=== PATIENT | female | born 1955 | race Caucasian/White ===

== ENCOUNTER 2024-02-29 13:58 | Outpatient (REF) | payer MEDICARE, SELFPAY ==
[2024-02-29 15:33] LABS: HCT 44.7 % (36.0-46.0); HGB 14.7 g/dL (11.2-15.7); MCH 30.8 pg (27.0-33.0); MCHC 32.9 % (32.0-36.0); MCV 94 fL (80-95); MPV 9.8 fL (8.0-11.0); Platelet Count 631 10^3/uL (130-400); RBC 4.77 10^6/uL (3.93-5.22); RDW-SD 51.8 fL; WBC 9.21 10^3/uL (4.4-10.8)
[2024-02-29 16:17] LABS: ALT 23 U/L (14-59); AST 28 U/L (15-37); Albumin 3.8 g/dL (3.4-5.0); Alkaline Phosphatase 85 U/L (46-116); Anion Gap 8.1 mmol/L (3-11); BUN 15 mg/dL (7-18); Bilirubin, Total 0.77 mg/dL (0.2-1.0); CO2 28.9 mmol/L (21.0-32.0); CREATININE 0.8 mg/dL (0.55-1.02); Calcium 9.6 mg/dL (8.5-10.1); Calculated LDL 180 mg/dL (<100); Chloride 105 mmol/L (98-107); Cholesterol 262 mg/dL (<200); Estimated GFR 80.21 (mL/min/1.73m2); Glucose 95 mg/dL (74-106); HDL Cholesterol 64 mg/dL (40-60); Potassium 4.9 mmol/L (3.5-5.1); Sodium 142 mmol/L (136-145); Total Protein 7.8 g/dL (6.4-8.2); Triglyceride 91 mg/dL (<150); Vitamin D 25 Total 57.2 ng/mL (30-100)
== END 2024-02-29 13:59 | disposition home or self-care (01) ==
LOC: NCHCN 13:58
PROVIDERS: Visit Provider Family Medicine
DX: Z13.220 Encounter for screening for lipoid disorders (principal); E55.9 Vitamin D deficiency, unspecified; B27.00 Gammaherpesviral mononucleosis without complication
CPT/HCPCS: 80053; 80061; 82306; 85027; 84443

== ENCOUNTER 2024-03-27 17:49 | Outpatient (REF) | payer MEDICARE, SELFPAY ==
[2024-03-27 21:00] LABS: Abs Immature Grans 0.04 10^3/uL (0.0-0.06); Absolute Basophil Count 0.08 10^3/uL (0.0-0.2); Absolute Eosinophil Count 0.18 10^3/uL (0.0-0.7); Absolute Monocyte Count 0.71 10^3/uL (0.1-0.8); Absolute Neutrophil Count 9.43 10^3/uL (1.2-6.7); Basophils % 0.6 %; Eosinophils % 1.4 %; HCT 45.5 % (36.0-46.0); HGB 14.7 g/dL (11.2-15.7); Immature Grans % 0.3 %; Lymphocytes % 19.3 %; MCH 30.7 pg (27.0-33.0); MCHC 32.3 % (32.0-36.0); MCV 95 fL (80-95); MPV 9.7 fL (8.0-11.0); Monocytes % 5.5 %; Neutrophils % 72.9 %; RBC 4.79 10^6/uL (3.93-5.22); RDW 14.6 % (11.7-14.6); RDW-SD 50.6 fL; WBC 12.93 10^3/uL (4.4-10.8)
[2024-03-27 21:21] LABS: Platelet Count 754 10^3/uL (130-400)
== END 2024-03-27 17:50 | disposition home or self-care (01) ==
LOC: NCHCN 17:49
PROVIDERS: Visit Provider Family Medicine
DX: R10.13 Epigastric pain (principal)
CPT/HCPCS: 85025

== ENCOUNTER 2024-04-03 18:47 | Outpatient (REF) | payer MEDICARE, SELFPAY ==
[2024-04-03 21:56] LABS: Abs Immature Grans 0.05 10^3/uL (0.0-0.06); Absolute Basophil Count 0.06 10^3/uL (0.0-0.2); Absolute Eosinophil Count 0.18 10^3/uL (0.0-0.7); Absolute Lymphocyte Count 2.56 10^3/uL (1.2-3.4); Absolute Monocyte Count 0.63 10^3/uL (0.1-0.8); Absolute Neutrophil Count 9.07 10^3/uL (1.2-6.7); Basophils % 0.5 %; Eosinophils % 1.4 %; HCT 44.8 % (36.0-46.0); HGB 14.9 g/dL (11.2-15.7); Immature Grans % 0.4 %; Lymphocytes % 20.4 %; MCH 31.3 pg (27.0-33.0); MCHC 33.3 % (32.0-36.0); MCV 94 fL (80-95); MPV 9.7 fL (8.0-11.0); Neutrophils % 72.3 %; RBC 4.76 10^6/uL (3.93-5.22); RDW 14.5 % (11.7-14.6); RDW-SD 50.5 fL; WBC 12.55 10^3/uL (4.4-10.8)
[2024-04-03 22:20] LABS: Diff Comment PLT Morph Reviewed; Platelet Count 772 10^3/uL (130-400); RBC Morphology Normal
== END 2024-04-03 18:48 | disposition home or self-care (01) ==
LOC: NCHCN 18:47
PROVIDERS: Visit Provider Family Medicine
DX: R79.89 Other specified abnormal findings of blood chemistry (principal)
CPT/HCPCS: 85025

== ENCOUNTER 2024-04-05 15:24 | Outpatient (REF) | payer MEDICARE, SELFPAY ==
[2024-04-05 15:06] LABS: HCT 43.5 % (36.0-46.0); HGB 14.2 g/dL (11.2-15.7); MCH 30.6 pg (27.0-33.0); MCHC 32.6 % (32.0-36.0); MCV 94 fL (80-95); MPV 9.6 fL (8.0-11.0); RBC 4.64 10^6/uL (3.93-5.22); RDW 14.4 % (11.7-14.6); RDW-SD 49.8 fL; WBC 8.89 10^3/uL (4.4-10.8)
[2024-04-05 15:20] LABS: Platelet Count 723 10^3/uL (130-400)
[2024-04-05 15:27] LABS: Ferritin 84 ng/mL (8-252)
== END 2024-04-05 15:25 | disposition home or self-care (01) ==
LOC: NCHCN 15:24
PROVIDERS: PCP Family Medicine; Visit Provider Family Medicine
DX: R79.89 Other specified abnormal findings of blood chemistry (principal)
CPT/HCPCS: 85027; 82728

== ENCOUNTER 2024-04-22 21:20 | Outpatient (REF) | payer MEDICARE, SELFPAY ==
[2024-04-22 21:51] LABS: HGB 14.2 g/dL (11.2-15.7); MCH 30.6 pg (27.0-33.0); MCHC 32.3 % (32.0-36.0); MCV 95 fL (80-95); MPV 9.6 fL (8.0-11.0); RBC 4.64 10^6/uL (3.93-5.22); RDW 14.5 % (11.7-14.6); RDW-SD 50.7 fL; WBC 12.82 10^3/uL (4.4-10.8)
[2024-04-22 22:03] LABS: Platelet Count 719 10^3/uL (130-400)
== END 2024-04-22 21:21 | disposition home or self-care (01) ==
LOC: NCHCN 21:20
PROVIDERS: PCP Family Medicine; Visit Provider Family Medicine
DX: R89.9 Unspecified abnormal finding in specimens from other organs, systems and tissues (principal)
CPT/HCPCS: 85027